=== PATIENT | female | born 1950 | race Caucasian/White ===

== ENCOUNTER 2022-06-15 10:19 | Outpatient (CLI) | payer MEDICARE ==
[2022-06-15 12:41] LABS: Hemoglobin 13.7 g/dL (12.0-15.5); Mean Corpuscular HGB CONC 33.8 g/dL (32.0-36.0); Mean Corpuscular Hemoglobin 32.9 pg (27.0-33.0); Mean Corpuscular Volume 97.1 fl (81.6-98.3); Mean Platelet Volume 9.5 fl (7.4-10.4); Platelet Count 360 10x3/uL (150-450); RBC Distribution Width 13.3 % (11.5-14.5); Red Blood Cell (RBC) Count 4.17 10x6/uL (3.90-5.03); White Blood Cell (WBC) Count 6.3 10x3/uL (3.5-10.5)
[2022-06-15 13:28] LABS: Anion Gap 18 mmol/L (10-20); BUN (Urea Nitrogen) 18 mg/dL (9.8-20.1); Calc. Creatinine Clearance 0 mL/min (70-130); Calcium 9.2 mg/dL (7.8-10.44); Carbon Dioxide 23 mmol/L (23-31); Chloride 96 mmol/L (98-107); Estimated GFR 95; Glucose 84 mg/dL (83-110); Potassium 4.1 mmol/L (3.5-5.1); Sodium 133 mmol/L (136-145)
== END 2022-06-15 10:20 | disposition home or self-care (01) ==
LOC: LABBT 10:19
PROVIDERS: ATTEND Neurological Surgery
DX: Z01.818 Encounter for other preprocedural examination (principal); M48.061 Spinal stenosis, lumbar region without neurogenic claudication
CPT/HCPCS: 80048; 85027; 93005; 93010

== ENCOUNTER 2022-06-20 06:13 | Observation (INO) | payer MEDICARE ==
[2022-06-15 10:54] VITALS: BMI 28.1
[2022-06-20] MEDS ORDERED: Bupivacaine HCl 0.5%/Epinephrine 1:200,000/PF 30 ml Vial ONE ×2 (08:42→14:16)
[2022-06-20] MEDS ORDERED: SUGAMMADEX SODIUM 200 MG/2 ML VIAL ONE ×3 (08:47→14:45)
[2022-06-20] MEDS ORDERED: fentaNYL 50 mcg/mL 1 mL Vial ONE ×6 (08:47→17:28)
[2022-06-20] MEDS ORDERED: Vasopressin 20 UNITS/ML VIAL ONE (08:47)
[2022-06-20] MEDS ORDERED: Famotidine/PF 20 mg/2ml Vial ONE (08:47)
[2022-06-20] MEDS ORDERED: CEFAZOLIN 2 GM VIAL ONE (08:53)
[2022-06-20] MEDS ORDERED: Sodium Chloride 0.9% 100 ML ONE (08:53)
[2022-06-20] MEDS ORDERED: Sevoflurane 250 ML INH ANEST BOTTLE ONE (09:00)
[2022-06-20] MEDS ORDERED: Dexamethasone 20 MG/5 ML VIAL ONE (09:01)
[2022-06-20] MEDS ORDERED: Ondansetron PF 4 MG/2 ML Vial ONE ×2 (09:01→14:21)
[2022-06-20] MEDS ORDERED: PHENYLEPHRINE-NS 100 MCG/ML 10 ML SYRINGE ONE (09:01)
[2022-06-20] MEDS ORDERED: NEOSTIGMINE 3 MG/3 ML SYR 3 MG/3 ML SYRINGE ONE (09:01)
[2022-06-20] MEDS ORDERED: PROPOFOL 200 MG/20 ML VIAL ONE ×2 (09:01→14:21)
[2022-06-20] MEDS ORDERED: Rocuronium Bromide 10 MG/ML (10ML VIAL) ONE ×2 (09:01→14:21)
[2022-06-20] MEDS ORDERED: ePHEDrine Sulfate 50 MG/10 ML VIAL ONE (09:01)
[2022-06-20] MEDS ORDERED: Lidocaine 1% PF 5 ML VIAL ONE ×2 (09:01→14:21)
[2022-06-20] MEDS ORDERED: GLYCOPYRROLATE/PF 0.2 MG/ML VIAL ONE (09:01)
[2022-06-20] MEDS ORDERED: diphenhydrAMINE 50 MG/ML VIAL ONE (11:12)
[2022-06-20] MEDS ORDERED: Promethazine HCl 25 MG/ML VIAL ONE (11:18)
[2022-06-20] MEDS ORDERED: HYDROmorphone 0.5 MG/0.5 ML SYRINGE ONE ×4 (11:28→13:55)
[2022-06-20] MEDS ORDERED: Lidocaine 2% 6 ML SYR ONE (13:55)
[2022-06-20] MEDS ORDERED: fentaNYL PF 100 MCG/2 ML SYRINGE ONE (13:55)
[2022-06-20] MEDS ORDERED: Thrombin 5000 UNITS/5 ML VIAL ONE (14:09)
[2022-06-20] MEDS ORDERED: Acetaminophen/Codeine 30-300mg Tablet PO PRN ×2 (15:07)
[2022-06-20] MEDS ORDERED: Ondansetron PF 4 MG/2 ML Vial IVP PRN (15:07)
[2022-06-20] MEDS ORDERED: diphenhydrAMINE 50 MG/ML VIAL IVP PRN (15:07)
[2022-06-20] MEDS ORDERED: Bisacodyl 10 MG SUPP PR PRN (15:07)
[2022-06-20] MEDS ORDERED: fentaNYL 50 mcg/mL 1 mL Vial SLOW IVP PRN (15:07)
[2022-06-20] MEDS ORDERED: Ondansetron HCl/PF 4 MG/2 ML Vial IVP PRN (15:19)
[2022-06-20] MEDS ORDERED: Promethazine HCl 25 MG/ML VIAL IM PRN (15:19)
[2022-06-20] MEDS ORDERED: Loratadine 10 MG TAB PO PRN (16:41)
[2022-06-20] MEDS ORDERED: CEFAZOLIN 2 GM in Sodium Chloride 0.9% 100 ML IVPB SCH (17:00)
[2022-06-20] MEDS: CEFAZOLIN 2 GM in Sodium Chloride 0.9% 100 ML IVPB SCH (20:53)
[2022-06-20] MEDS: Fish Oil 1,000 MG CAP PO SCH (20:54)
[2022-06-20] MEDS: Calcium Carbonate 600 MG TAB PO SCH (20:54)
[2022-06-20] MEDS ORDERED: Simvastatin 10 MG TAB PO SCH (21:00)
[2022-06-20] MEDS ORDERED: Melatonin 3 MG TAB PO SCH (21:00)
[2022-06-20] MEDS ORDERED: Amlodipine 5 mg/Benazepril 20 mg CAP PO SCH (21:00)
[2022-06-21] MEDS: CEFAZOLIN 2 GM in Sodium Chloride 0.9% 100 ML IVPB SCH (03:46)
[2022-06-21] MEDS: Acetaminophen 325 MG TAB PO PRN ×2 (04:37→11:28)
[2022-06-21] MEDS: Sodium Chloride 0.9% 1,000 ML IV SCH ×2 (04:39→07:56)
[2022-06-21] MEDS ORDERED: Levothyroxine Sodium 112 MCG TAB PO SCH (06:00)
[2022-06-21] MEDS: Calcium Carbonate 600 MG TAB PO SCH (07:57)
[2022-06-21] MEDS: Fish Oil 1,000 MG CAP PO SCH (07:58)
[2022-06-21] MEDS ORDERED: Hydrocodone-Acetamin 15 ML UDCUP PO PRN (08:36)
[2022-06-21] MEDS ORDERED: MILK THISTLE PO SCH (09:00)
[2022-06-21] MEDS ORDERED: Cholecalciferol 1,000 UNITS (25 MCG) TAB PO SCH (09:00)
[2022-06-21] MEDS ORDERED: Non-Formulary Item 1 EACH (Tumeric/Ging/Olive/Oreg/Capryl [Candicidal Capsule] 1 EACH Cap PO SCH (09:00)
[2022-06-21] MEDS ORDERED: Multivitamin W/ Minerals 1 TAB PO SCH (09:00)
[2022-06-21 10:46] VITALS: BP 113/75; TEMP 97.7
[2022-06-21] MEDS ORDERED: CEFAZOLIN 1 GM VIAL SLOW IVP SCH (14:00)
== END 2022-06-21 12:45 | disposition home or self-care (01) ==
LOC: SDC 06:13 → SJJU 18:16
PROVIDERS: ADMIT Neurological Surgery; ATTEND Neurological Surgery
PROC: 01NB0ZZ Release Lumbar Nerve, Open Approach (ICD-10-PCS; principal; 2022-06-20)
PROC: 0JC70ZZ Extirpation of Matter from Back Subcutaneous Tissue and Fascia, Open Approach (ICD-10-PCS; 2022-06-20)
DX: M48.061 Spinal stenosis, lumbar region without neurogenic claudication (principal); M96.841 Postprocedural hematoma of a musculoskeletal structure following other procedure; E78.5 Hyperlipidemia, unspecified; M19.90 Unspecified osteoarthritis, unspecified site; M81.0 Age-related osteoporosis without current pathological fracture; E89.0 Postprocedural hypothyroidism; I10 Essential (primary) hypertension; Z79.1 Long term (current) use of non-steroidal anti-inflammatories (NSAID); Z79.890 Hormone replacement therapy; Z79.899 Other long term (current) drug therapy; Z88.5 Allergy status to narcotic agent; Z98.890 Other specified postprocedural states
CPT/HCPCS: 22015; 63047; 63048 ×2; 97110; 97116; 97535; C1713; J3010; J3490; J1100; J1170; J1200; J2405; J2550; J2704; S0028